=== PATIENT | female | born 1950 | race Caucasian/White ===

== ENCOUNTER 2017-01-28 13:02 | Outpatient (CLI) | payer OTHER ==
--- NOTE | 2017-01-28 15:02 | DIAGNOSTIC IMAGING REPORT ---
PROCEDURE: MG BILATERAL SCREENING W/CAD INDICATION: SCREENING TECHNIQUE: Bilateral CC and MLO digital views. COMPARISON: Compared to 05/200904/27/2007. FINDINGS: Computer-aided detection applied. Moderately dense with a few dystrophic and vascular calcifications. There is a stable 7 mm dystrophic calcification in the lower central left breast. No change. IMPRESSION: 1. Negative mammogram. RESULT CODE: 1- Negative. A. A negative report should not delay biopsy if a dominant or clinically suspicious mass is present. 10-15% of cancers are not identified by x-ray. B. A negative report may reinforce clinical impression. C. Adenosis and dense breasts may obscure an underlying neoplasm. D. False positive reports average 6-10%. E.. A yearly screening mammogram is recommended. A reminder letter will be scheduled.
== END 2017-01-28 23:00 | disposition home or self-care (01) ==
LOC: MAM SRH 13:02
DX: Z12.31 Encounter for screening mammogram for malignant neoplasm of breast (principal); R07.89 Other chest pain; I44.0 Atrioventricular block, first degree